=== PATIENT | female | born 1945 | race Caucasian/White ===

== ENCOUNTER 2017-02-16 13:04 | Outpatient (CLI) | payer OTHER ==
[2015-12-11 06:02] VITALS: BP 151/72
--- NOTE | 2017-02-16 15:15 | OP Clinic Progress Note ---
REASON FOR VISIT: This 71-year-old female comes in with marked clinical hearing loss. She has a hearing aid in her right ear. She complains of bilateral ear pain, right significantly greater than left. She does have a significant amount of fluid behind the eardrum in the left ear. The right ear looks like a markedly retracted stiff eardrum but without the fluid. I went over choices and options for the patient. She showed a large amount of capone inspissated thick snot that she brought in a Kleenex in a plastic baggy. With a fiberoptic rhinoscope, today, I did not see green or yellow or pus in her snot or inspissated mucus or gross purulence in her nostrils. I went over risks and choices. She would like to try to hear better. She opted for a myringotomy and would consider putting a tube in the ear. PLAN: With a microscope and with phenol anesthesia, and that is pretty good anesthesia , but with almost any amount of pressure, the patient jerked and jumped, and said she simply was afraid and extremely anxious and jerky. I suctioned a significant amount of middle ear fluid out. She had marked hearing improvement. The patient was just literally jerky enough today that as I was trying to put a tube in, she moved around enough that I did not think it was safe with the moderate possibility of dropping the tube through the myringotomy site. In this case, I elected not to put the tube in. She already had a significant amount of fluid sucked out of the ear. I would like to give her some antibiotics. I have chosen Augmentin 500 mg 3 times a day for 10 days. She has been warned about getting diarrhea and to stop it if she does. Aural hygiene is stressed. I have advised her against the deleterious effects of smoking. MARCOS
== END 2017-02-16 13:05 ==
LOC: ENT 13:04
PROVIDERS: ATTEND Otolaryngology
DX: H91.93 Unspecified hearing loss, bilateral (principal); H92.03 Otalgia, bilateral
CPT/HCPCS: 69420; G0463

== ENCOUNTER 2017-02-23 14:39 | Outpatient (CLI) | payer OTHER ==
[2015-12-11 06:02] VITALS: BP 151/72
[2017-02-23 15:40] LABS: eGFR (African) > 60; eGFR (Non-African) > 60
--- NOTE | 2017-02-24 10:31 | OP Clinic Progress Note ---
REASON FOR VISIT: This 71-year-old female is seen in follow up of her severe bilateral hearing loss. She had significant pain and discomfort in the right ear that has persisted. By unknown reasons over the last at least 5 years, she had progressive declining hearing loss in the right ear. In the clinic, there is no fluid in the right ear. The ear canal is clear in the right ear. The left ear has middle ear fluid. Last week, she was given Augmentin 500 mg 3 times a day. She has tolerated this well and there is no diarrhea. Her hearing has improved clinically. PLAN: She will continue taking the Augmentin. With the unknown etiology of the about [id number] of hearing loss that appears to be sensorineural in the right ear would indicate a need to get a radiographic evaluation of the posterior cranial fossa. She could have an acoustic tumor or other etiology. The patient says she has a lot of metal in her body including 2 hips and a knee. An alternative of getting an MRI would be to get a CT with contrast. She will get a CHEM-profile today. After some discussion, we will plan to do the CT with contrast of the head in [place] and do an audiometric evaluation of her hearing on the same day. MARCOS
== END 2017-02-23 14:40 ==
LOC: ENT 14:39
PROVIDERS: ATTEND Otolaryngology
DX: H91.8X3 Other specified hearing loss, bilateral (principal); H92.01 Otalgia, right ear
CPT/HCPCS: 36415; 80053; G0463

== ENCOUNTER 2017-08-15 20:13 | Emergency (ER) | payer OTHER ==
--- NOTE | 2017-08-15 20:29 | ED Physician Documentation ---
Upper Extremity Problem - HISTORIAN Historian: patient - HPI Stated Complaint: hand pain Chief Complaint: Hand Injury Location: R wrist, R hand Onset: days ago (6) Timing: still present Recent Injury: No (after carrying groceries ) Context: prolonged pressure on ext Where: home Severity: mild Associated Symptoms: denies: fever, chest pain Relieved By: other (when she wears KB ) Quality: pain, swelling, tenderness - ROS CONST: no problems EYES/ENT: none CVS/RESP: none GI/: none - PAST HX Past History: other Surgeries/Procedures: other (5 right hip replacements ) Immunizations: referred to PCP Allergies/Adverse Reactions: Allergies Allergy/AdvReac Type Severity Reaction Status Date / Time morphine AdvReac Mild nausea Verified 12/10/15 22:27 Home Medications: Ambulatory Orders Medication Instructions Recorded Lisinopril [Prinivil] 10 mg PO D 06/18/13 Oxycodone HCl/Acetaminophen 1 each PO D PRN 06/18/13 [Endocet 10-325 mg Tablet] Aspirin [Adult Low Dose Aspirin EC] 81 mg PO D 08/15/17 Bupropion HCl [Wellbutrin] 08/15/17 - SOCIAL HX Smoking History: cigarettes Alcohol Use: none Drug Use: none - FAMILY HX Family History: none - VITAL SIGNS Vital Signs: Vital Signs Temp Pulse Resp BP Pulse Ox 77 18 125/87 95 08/15/17 20:14 08/15/17 20:14 08/15/17 20:14 08/15/17 20:14 - REVIEWED ASSESSMENTS Nursing Assessment Reviewed: Yes Vitals Reviewed: Yes ED Results Lab/Radiology - Radiology Radiology Impressions: Right forearm 2 views Date of Exam: August 15, 2017. History: PAIN, PT WAS CARRYING GROCERIES IN AND FELT A POP, HAPPENED ON 2016 (Hx) Findings: No acute fracture or dislocation is identified. The radiocarpal alignment is maintained. The elbow is normal. Impression: No acute osseous abnormality. Electronically signed on Aug 15, 2017 9:18:39 PM BANDER AND CELLOPHANER MACHINE HELPER by: Nikita Reynolds Right hand 3 views Date of Exam: August 15, 2017. History: PAIN, PT WAS CARRYING GROCERIES IN AND FELT A POP, HAPPENED ON 2016 (Hx) Findings: No acute fracture or dislocation is identified. There are mild degenerative osteoarthritic changes. The radiocarpal alignment is maintained. Impression: Degenerative osteoarthritic changes without evidence of acute fracture or dislocation. Electronically signed on Aug 15, 2017 9:16:25 PM BANDER AND CELLOPHANER MACHINE HELPER by: Nikita Moran Orders Orders: ED Orders Category Date Time Status FOREARM 2 VIEWS [RAD] Stat Exams 08/15/17 Taken HAND 3 VIEWS OR MORE [RAD] Stat Exams 08/15/17 Taken Upper Extremity Problem - EXAM General Appearance: no acute distress, alert Skin: warm/dry, other (bruising noted on right hand ) Elbow/Forearm Exam: normal inspection, non-tender, no evidence of injury, normal ROM Wrist Exam: normal inspection, non-tender, limited ROM (painful pronation ) Hand Exam: normal ROM, deformity, swelling Neuro/Tendon: normal sensation, normal motor functions CVS: reg rate & rhythm, heart sounds normal, no murmur Peripheral: sensation nml, motor nml Central: oriented X3, CN's nml as tested, motor nml, sensation nml Respiratory: no resp. distress, breath sounds nml Abdomen: non-tender, nml bowel sounds Discharge Clincal Impression: Pain Referrals: Primary Doctor,No [Primary Care Provider] - 2 Days Condition: Stable Disposition: 01 HOME, SELF-CARE Decision to Admit: NO Date of Decison to Admit: 08/15/17 Decision Time: 21:26
[2017-08-15 20:37] VITALS: BP 125/87
--- NOTE | 2017-08-16 06:51 | Diagnostic Imaging Report ---
LIZA CHOUDHURY [facility] [address] [facility] [address] [place], [place]. [address] Report Submission Date: Aug 15, 2017 9:16:25 PM FIBERGLASS MACHINE OPERATOR Patient Study Name: SALLY BANERJEE Date: Aug 15, 2017 8:47:30 PM FIBERGLASS MACHINE OPERATOR Modality Type: CR Gender: F Description: UPPER EXTREMITY : 47 Institution: [facility] Physician: LIZA CHOUDHURY Right hand 3 views Date of Exam: August 15, 2017. History: PAIN, PT WAS CARRYING GROCERIES IN AND FELT A POP, HAPPENED ON 2016 (Hx) Findings: No acute fracture or dislocation is identified. There are mild degenerative osteoarthritic changes. The radiocarpal alignment is maintained. Impression: Degenerative osteoarthritic changes without evidence of acute fracture or dislocation. Electronically signed on Aug 15, 2017 9:16:25 PM FIBERGLASS MACHINE OPERATOR by: Nikita RODRÍGUEZ
--- NOTE | 2017-08-16 06:52 | Diagnostic Imaging Report ---
LIZA CHOUDHURY [facility] [address] [facility] [address] [place], [place]. [address] Report Submission Date: Aug 15, 2017 9:18:39 PM CATCHER PLUG Patient Study Name: SALLY BANERJEE Date: Aug 15, 2017 8:50:53 PM CATCHER PLUG Modality Type: CR Gender: F Description: UPPER EXTREMITY : 47 Institution: [facility] Physician: LIZA CHOUDHURY Right forearm 2 views Date of Exam: August 15, 2017. History: PAIN, PT WAS CARRYING GROCERIES IN AND FELT A POP, HAPPENED ON 2016 (Hx) Findings: No acute fracture or dislocation is identified. The radiocarpal alignment is maintained. The elbow is normal. Impression: No acute osseous abnormality. Electronically signed on Aug 15, 2017 9:18:39 PM CATCHER PLUG by: Nikita RODRÍGUEZ
== END 2017-08-15 21:30 | disposition home or self-care (01) ==
LOC: ED 20:13
DX: M79.641 Pain in right hand (principal)
CPT/HCPCS: 73090; 73130; 99283; L3908

== ENCOUNTER 2018-01-08 15:06 | Emergency (ER) | payer OTHER ==
[2018-01-08 15:17] VITALS: BP 150/94
[2018-01-08] MEDS ORDERED: TETRACAINE HCL/PF 5% OPTH SOL OP ONE (15:34)
--- NOTE | 2018-01-08 15:41 | ED Physician Documentation ---
General Adult - HISTORIAN Historian: patient - HPI Stated Complaint: Left Eye Redness/Tearing Chief Complaint: General Adult Onset: days ago (7) Timing: still present Severity: moderate Further Comments: yes (Pt is a 72 yo female with L eye pain & redness that has been going on for a week. Pt was seen in an Urgent Care and tx'd with oral steroid for allergies. Condition improved and then worsened. Pt has L scleral injection and tearing in L eye only. No increased pain with looking at light.) - ROS CONST: no problems EYES/ENT: other (L eye pain, redness) CVS/RESP: none GI/: none MS/SKIN/LYMPH: none - PAST HX Past History: hypertension, other (anxiety) Surgeries/Procedures: other (ortho) Allergies/Adverse Reactions: Allergies Allergy/AdvReac Type Severity Reaction Status Date / Time sulfamethoxazole Allergy Verified 01/08/18 15:17 [From Bactrim] tramadol Allergy Verified 01/08/18 15:17 trimethoprim [From Bactrim] Allergy Verified 01/08/18 15:17 morphine AdvReac Mild nausea Verified 01/08/18 15:17 Home Medications: Ambulatory Orders Medication Instructions Recorded Lisinopril [Prinivil] 10 mg PO D 06/18/13 Oxycodone HCl/Acetaminophen 1 each PO D PRN 06/18/13 [Endocet 10-325 mg Tablet] Alprazolam [Niravam] 1 mg PO BID 01/08/18 - SOCIAL HX Smoking History: cigarettes - FAMILY HX Family History: No - VITAL SIGNS Vital Signs: Vital Signs Temp Pulse Resp BP Pulse Ox 88 18 150/94 94 01/08/18 15:10 01/08/18 15:10 01/08/18 15:10 01/08/18 15:10 - REVIEWED ASSESSMENTS Nursing Assessment Reviewed: Yes Vitals Reviewed: Yes Progress - Progress Progress: 2 gtt tetracaine in ER Rx Ciprofloxacin ophthalmic. Two drops in left eye every 4 for 7 to 10 days. Rx [place] (5/325). Take one or two every 4 to 6 hrs as needed for moderate to severe pain. Follow up with bandoleer straightener stamper, or [facility], if symptoms persist. ED Results Lab/Radiology - Orders Orders: ED Orders Category Date Time Status Tetracaine HCl/Pf [Pontocaine 5% Opth] Med 01/08/18 15:34 Discontinued 30 drop OP .STK-MED ONE General Adult Physical Exam - PHYSICAL EXAM GENERAL APPEARANCE: moderate distress EENT: other (L eye scleral injection; fluoresceine exam shows punctate corneal abrasion at 10 o'clock position.) RESPIRATORY: no resp distress BACK: normal inspection SKIN: warm/dry, normal color EXTREMITIES: non-tender, normal range of motion, no evidence of injury NEURO: oriented X3, motor nml, sensation nml Discharge Clincal Impression: Left corneal abrasion Qualifiers: Encounter type: initial encounter Qualified Code(s): S05.02XA - Injury of conjunctiva and corneal abrasion without foreign body, left eye, initial encounter Referrals: Primary Doctor,No [REFERRING] - Condition: Stable Disposition: 01 HOME, SELF-CARE Decision to Admit: NO Decision Time: 15:41
== END 2018-01-08 15:52 | disposition home or self-care (01) ==
LOC: ED 15:06
DX: S05.02XA Injury of conjunctiva and corneal abrasion without foreign body, left eye, initial encounter (principal); Y99.9 Unspecified external cause status
CPT/HCPCS: 99283

== ENCOUNTER 2018-07-11 18:24 | Emergency (ER) | payer OTHER ==
[2018-07-11 18:48] VITALS: BP 150/63
--- NOTE | 2018-07-11 19:12 | ED Physician Documentation ---
General Adult - HISTORIAN Historian: patient - HPI Stated Complaint: Chest pain Chief Complaint: General Adult Additional Information: "Think I'm having a heart attack." Has felt tired and SOB for 2 weeks. Saw her primary yesterday and has several tests ordeded including dobutamine stress test. This afternoon, her son called her and was 'going on like a crazy man" about problems and his girlfriend. She had precordial "annoying" pain that lasted 10 minutes. She took two SL nitro's and 81 mg asa. No diaphoresis or palpitations. Never had this pain before. Says she has to go home. Pain is gone at time of exam. She thinks she may have had a panic attack.No other modifying factors or associated events. - ROS CONST: no problems CVS/RESP: shortness of breath - PAST HX Past History: angina (she denies, but given script for nitor per her back padder at [facility]), hypertension, other (takes percocet, vicodin for hip and left knee pain) Surgeries/Procedures: other (THRx4 on right, x1 on left; TKR right. ) Allergies/Adverse Reactions: Allergies Allergy/AdvReac Type Severity Reaction Status Date / Time doxycycline Allergy Verified 07/11/18 18:50 sulfamethoxazole Allergy Verified 07/11/18 18:50 [From Bactrim] tramadol Allergy Verified 07/11/18 18:50 trimethoprim [From Bactrim] Allergy Verified 07/11/18 18:50 morphine AdvReac Mild nausea Verified 07/11/18 18:50 Home Medications: Ambulatory Orders Medication Instructions Recorded Oxycodone HCl/Acetaminophen 1 each PO D PRN 06/18/13 [Endocet 10-325 mg Tablet] Alprazolam [Niravam] 1 mg PO BID 01/08/18 Albuterol Sulfate [Proair 2 puff INH QID 07/11/18 Respiclick] Aspirin [Jose Luis] 1 tab PO DAILY 07/11/18 Cholecalciferol (Vitamin D3) 1 tab PO DAILY 07/11/18 [Vitamin D3] Cyclobenzaprine HCl [Flexeril] 1 tab PO DAILY 07/11/18 Docusate Sodium [Move It Along] 2 tab PO BID 07/11/18 Escitalopram Oxalate [Lexapro] 1 mg PO DAILY 07/11/18 Fluticasone/Vilanterol [Breo 07/11/18 Ellipta 100-25 Mcg INH] Gabapentin [Neurontin] 1 cap PO HS 07/11/18 HYDROcodone /APAP [[place] 1 tab PO BID 07/11/18 10] Ibuprofen [Ibu] 1 tab PO Q8 07/11/18 Lisinopril [Prinivil] 1 tab PO DAILY 07/11/18 Nitroglycerin [Nitroquick] 1 tab PO PRN PRN 07/11/18 Trazodone HCl [Desyrel] 1 tab PO HS 07/11/18 Ubiquinol 1 cap PO DAILY 07/11/18 - SOCIAL HX Smoking History: cigarettes ("at least" 1 PPDsince 15 y/o) - FAMILY HX Family History: No - VITAL SIGNS Vital Signs: Vital Signs Temp Pulse Resp BP Pulse Ox 98 H 15 150/63 95 07/11/18 18:34 07/11/18 18:24 07/11/18 18:24 07/11/18 18:24 - REVIEWED ASSESSMENTS Nursing Assessment Reviewed: Yes Vitals Reviewed: Yes Progress - Results/Orders Results/Orders: insists she must leave. signs ama papers. ED Results Lab/Radiology - Orders Orders: ED Orders Category Date Time Status Continuous EKG monitoring Q1H Care 07/11/18 18:[address] IV Lock 1T Care 07/11/18 18:34 Active CHEST 1VIEW [RAD] Stat Exams 07/11/18 Ordered CBC/PLATELET/DIFF Routine Lab 07/11/18 18:45 Received CMP Routine Lab 07/11/18 18:45 Received TROPONIN T (Trisha) Stat Lab 07/11/18 18:45 Received URINALYSIS Routine Lab 07/11/18 Ordered EKG WITH COMPARISON Stat Ther 07/11/18 Completed General Adult Physical Exam - PHYSICAL EXAM GENERAL APPEARANCE: mild distress EENT: eye inspection normal, ENT inspection normal (dentures), pharynx normal NECK: normal inspection, supple RESPIRATORY: no resp distress, breath sounds normal CVS: reg rate & rhythm, heart sounds normal ABDOMEN: soft, normal bowel sounds, no distension, non-tender BACK: normal inspection, no CVA tenderness, other (no vertebral tenderness) EXTREMITIES: non-tender, no evidence of injury, no edema NEURO: CN's nml as tested, motor nml, sensation nml Discharge Clincal Impression: Chest pain Qualifiers: Chest pain type: unspecified Qualified Code(s): R07.9 - Chest pain, unspecified Referrals: Kiera Dominguez MD [Primary Care Provider] - 2 Days Condition: Fair Disposition: 07 AGAINST MEDICAL ADVICE Decision to Admit: NO Decision Time: 19:19
[2018-07-11 19:15] LABS: eGFR (Non-African) > 60
[2018-07-11] MEDS: ASPIRIN 81 MG CHEW TAB ONE (19:15)
[2018-07-11] MEDS: ASPIRIN 81 MG CHEW TAB PO ONE (19:15)
[2018-07-11 19:17] LABS: EOSINOPHILS % 1.9 % (0.0-6.8); MEAN CORPUSCULAR HEMOGLOBIN 30.7 pg (28.0-34.0); MONOCYTES % 8.8 % (0.0-11.0)
[2018-07-11 19:18] LABS: BASOPHILS % 0.5 (0.0-1.5); NEUTROPHILS # 4.1 # k/uL (1.4-7.7)
[2018-07-11 21:41] LABS: TROPONIN T <0.010 ng/mL (<0.010)
--- NOTE | 2018-07-12 06:57 | Diagnostic Imaging Report ---
DREAD WOODARD [facility] [address] [facility] [address] [place] [address]. [id number] Report Submission Date: Jul 11, 2018 7:34:34 PM CDT Patient Study Name: SALLY BANERJEE Date: Jul 11, 2018 6:57:29 PM CDT Modality Type: DX Gender: F Description: CHEST : 47 Institution: [facility] Physician: DREAD WOODARD Portable chest History: Chest pain Portable chest dated July 11, 2018 is without prior radiographs for comparison. Heart size is within normal limits. Pulmonary vascularity is normal. There is no confluent infiltrate or pleural effusion. Impression: No active disease. Electronically signed on Jul 11, 2018 7:34:34 PM CDT by: Britt RODRÍGUEZ
== END 2018-07-11 19:20 | disposition left against medical advice (07) ==
LOC: ED 18:24
DX: R07.9 Chest pain, unspecified (principal); Z53.9 Procedure and treatment not carried out, unspecified reason
CPT/HCPCS: 71045; 80053; 84484; 85025; S1016

== ENCOUNTER 2019-03-28 18:40 | Emergency (ER) | payer OTHER ==
--- NOTE | 2019-03-28 19:11 | ED Physician Documentation ---
Chest Pain - HISTORIAN Historian: patient - HPI Stated Complaint: Chest pain Chief Complaint: Chest Pain Additional Information: Patient is a 73-year-old female who presents to the ER with c/o intermittent chest pain that started around 5p while lying in bed. She states that she has a lot of stress due to a son who lives with her that is 40 years old. She states that she has been in the ER before for chest pain and it was caused by stress. She states that once she got to the ER it was better. She denies any radiating pain. No aspirin given- pt is on blood thinners for stents placed in July. She states "if I could get rid of my sons I wouldn't have chest pain. Onset: hours Timing: gradual onset Duration: waxing, waning Last known Well Date: 03/28/19 Last Known Well Time: 17:00 Context: emotional upset (dealing with 40 year old son) Severity: mild Quality: sharp (intermittent- improved on arrival to ER) Chest Pain Radiation: no radiation Chest Pain Signs/Symptoms: denies: nausea, vomiting Worsened By: nothing Relieved By: nothing - ROS CONST: none MS/LYMPH: none GI/: none EYES/ENT: none SKIN/ENDO: none NEURO/PSYCH: none - PAST HX IA risk factors: hypertension, cardiac disease DVT/PE Risk Factors: other (COPD) Lung disease: COPD Surgeries/Procedures: cardiac stent, other (THRx4 right and 1 left hip) Immunizations: UTD Allergies/Adverse Reactions: Allergies Allergy/AdvReac Type Severity Reaction Status Date / Time doxycycline Allergy Verified 03/28/19 19:04 sulfamethoxazole Allergy Verified 07/11/18 18:50 [From Bactrim] tramadol Allergy Verified 07/11/18 18:50 trimethoprim [From Bactrim] Allergy Verified 07/11/18 18:50 morphine AdvReac Mild nausea Verified 03/28/19 19:04 Home Medications: Ambulatory Orders Medication Instructions Recorded Oxycodone HCl/Acetaminophen 1 each PO D PRN 06/18/13 [Endocet 10-325 mg Tablet] Alprazolam [Niravam] 1 mg PO BID 01/08/18 Albuterol Sulfate [Proair 2 puff INH QID 07/11/18 Respiclick] Aspirin [Jose Luis] 1 tab PO DAILY 07/11/18 Cholecalciferol (Vitamin D3) 1 tab PO DAILY 07/11/18 [Vitamin D3] Cyclobenzaprine HCl [Flexeril] 1 tab PO DAILY 07/11/18 Docusate Sodium [Move It Along] 2 tab PO BID 07/11/18 Escitalopram Oxalate [Lexapro] 1 mg PO DAILY 07/11/18 Fluticasone/Vilanterol [Breo 1 puff INH DAILY 07/11/18 Ellipta 100-25 Mcg INH] Gabapentin [Neurontin] 1 cap PO HS 07/11/18 HYDROcodone /APAP [[place] 1 tab PO BID 07/11/18 [address]] Ibuprofen [Ibu] 1 tab PO Q8 07/11/18 Lisinopril [Prinivil] 1 tab PO DAILY 07/11/18 Nitroglycerin [Nitroquick] 1 tab PO PRN PRN 07/11/18 Trazodone HCl [Desyrel] 1 tab PO HS 07/11/18 Ubiquinol 1 cap PO DAILY 07/11/18 - SOCIAL HX Smoking History: less than 1 pack/day Alcohol Use: none Drug Use: none - FAMILY HX Family HX: none - VITAL SIGNS Vital Signs: Vital Signs Temp Pulse Resp BP Pulse Ox 63 15 123/75 95 03/28/19 19:01 03/28/19 18:40 03/28/19 18:40 03/28/19 19:01 - REVIEWED ASSESSMENTS Nursing Assessment Reviewed: Yes Vitals Reviewed: Yes Progress - Progress Progress: 20:50 Patient has been resting comfortably- working on some scratch off tickets- one of her sons is at the bedside- she feels much better and is ready to go home after 500cc bolus of NS for mild dehydration. ED Results Lab/Radiology - Orders Orders: ED Orders Category Date Time Status Continuous EKG monitoring Q30M Care 03/28/19 19:01 Active Continuous Pulse Oximetry Q30M Care 03/28/19 19:[address] IV Lock 1T Care 03/28/19 19:01 Active CBC/PLATELET/DIFF Routine Lab 03/28/19 19:01 Ordered CMP Routine Lab 03/28/19 19:01 Ordered CREATINE KINASE Routine Lab 03/28/19 19:01 Ordered TROPONIN I Stat Lab 03/28/19 19:01 Ordered Oxygen Daily Oxygen 03/28/19 19:15 Ordered EKG WITH COMPARISON Stat Ther 03/28/19 19:01 Ordered Chest Pain Physical Exam - EXAM General Appearance: no acute distress, alert EENT: eye inspection normal, ENT inspection normal, BREA, dry mucous membranes Neck: nml inspection, no carotid bruit Respiratory: no resp. distress, chest non-tender, nml breath sounds CVS: reg. rate & rhythm, no murmur, pulses equal Abdomen: soft, increased BS Skin: warm/dry, normal color Extremities: non-tender, normal range of motion Neuro: oriented X3, CN's nml as tested, motor nml, sensation nml, mood/affect nml, cognition normal Discharge Clincal Impression: Dehydration, Atypical chest pain Referrals: Kiera Dominguez MD [Primary Care Provider] - 2 Days Additional Instructions: Increase water intake Drink 2 protein shakes daily (Boost, Ensure, Premier) Follow up with PCP next week for re-evaluation Condition: Good Disposition: 01 HOME, SELF-CARE Decision to Admit: NO Decision Time: 20:50
[2019-03-28 19:21] LABS: BASOPHILS % 0.5 % (0.0-1.5); NEUTROPHILS # 4.4 # k/uL (1.4-7.7)
[2019-03-28 19:46] LABS: eGFR (Non-African) > 60
[2019-03-28] MEDS ORDERED: 0.9 % SODIUM CHLORIDE 500 ML IV ONE (20:05)
[2019-03-28 21:22] VITALS: BP 134/81
== END 2019-03-28 20:43 | disposition home or self-care (01) ==
LOC: ED 18:40
DX: E86.0 Dehydration (principal); R07.89 Other chest pain
CPT/HCPCS: 80053; 82550; 84484; 85025; 96360; 99283; 99284; J7060; S1016

== ENCOUNTER 2019-10-05 16:31 | Outpatient (CLI) | payer OTHER ==
--- NOTE | 2019-10-05 20:15 | Diagnostic Imaging Report ---
PATIENT MR#: [id number] PATIENT PATIENT NAME: SALLY BANERJEE DATE OF : 1945 REFERRING PHYSICIAN: Kiera Dominguez EXAM DATE: 10/05/2019 ACCESSION NUMBER: [id number] EXAM DESCRIPTION: SHOULDER 2 VIEWS OR MORE CLINICAL HISTORY: SHOULDER PAIN COMPARISON: No study for comparison is available at the time of interpretation. TECHNIQUE: DX left shoulder, 3 views Osseous structures: The osseous structures are intact with no evidence of fracture. Joint spaces: The bones are well aligned, without dislocation. There is moderate glenohumeral arthros is with inferior osteophyte of the humeral head. There is moderate AC joint arthrosis, with inferior osteophyte narrow ing the rotator cuff interval. Soft tissues: There is a 5 mm calcified granuloma the left lung. IMPRESSION: 1. Moderate glenohumeral arthrosis. 2. Moderate AC joint arthrosis with inferior osteophyte which narrows the rotator cuff interval and m ay predispose to rotator cuff tear. Read by: Dr. Kit Almodovar Transcribed by: Kit Almodovar Transcribed Date: 10/05/2019 8:14:48 PM Electronically signed by: Dr. Kit Almodovar Date signed: 10/05/2019 8:14:48 PM
--- NOTE | 2019-10-05 20:27 | Diagnostic Imaging Report ---
PATIENT MR#: [id number] PATIENT PATIENT NAME: SALLY BANERJEE DATE OF : 1945 REFERRING PHYSICIAN: Kiera Dominguez EXAM DATE: 10/05/2019 ACCESSION NUMBER: [id number] EXAM DESCRIPTION: CHEST 2VIEW HISTORY: Abnormal weight loss. Left shoulder pain. COPD, smoker. COMPARISON: July 11, 2018. CHEST RADIOGRAPH, FRONTAL AND LATERAL: Upper mediastinum: There is generalized ectasia and tortuosity of the descending thoracic aorta, ligia uring up to 3.8 cm, similar to prior. Heart: No cardiomegaly. Lungs: 5 mm nodule of the left midlung, which appears stable compared to the June 2018 exam. 4 mm nodule of the posterior lower lobe on lateral view was not visualized on the prior exam due to absence of lateral v iew. Increased pulmonary markings consistent with COPD and interstitial lung disease. No lobar infiltrate, pulmonary edema, pneumothorax or significant effusion. Skeleton: Thoracic spondylosis. IMPRESSION: 1. 4-5 mm lower lobe nodules, one of which is stable compared to prior. Although these may represent calcified granulomas, further evaluation with screening chest CT is recommended in a patient with history of sm oking. 2. 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 3. COPD with chronic interstitial changes. Read by: Dr. Kit Almodovar Transcribed by: Kit Almodovar Transcribed Date: 10/05/2019 8:27:02 PM Electronically signed by: Dr. Kit Almodovar Date signed: 10/05/2019 8:27:02 PM
== END 2019-10-05 16:41 ==
LOC: RAD 16:31
PROVIDERS: ATTEND Family Medicine
DX: R63.4 Abnormal weight loss (principal); M25.529 Pain in unspecified elbow